=== PATIENT | female | born 1970 | race Caucasian/White ===

== ENCOUNTER 2018-06-14 17:53 | Emergency (ER) | payer SELFPAY ==
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
--- NOTE | 2018-06-14 18:36 | CR ---
INDICATION: injury TECHNIQUE: Left shoulder 2 views. COMPARISON: None. FINDINGS: Bones: Alignment is normal. No fractures or bone lesions. Joint spaces: Unremarkable. Soft tissues: Unremarkable. IMPRESSION: Unremarkable left shoulder. Dictated by: Ar Moore MD @ 06/14/2018 18:35:44 (Electronically Signed)
--- NOTE | 2018-06-14 18:38 | CR ---
INDICATION: Crush injury TECHNIQUE: Three views left elbow COMPARISON: None FINDINGS: Bones: Alignment is normal. No fractures. Scratch sense of bone involving the anterior distal humerus. Dorsal olecranon spur. Joint spaces: Unremarkable. Soft tissues: Unremarkable. IMPRESSION: Negative. No evidence of acute trauma. Dictated by Ar Moore MD @ 06/14/2018 6:37:41 PM Dictated by: Ar Moore MD @ 06/14/2018 18:37:48 (Electronically Signed)
== END 2018-06-14 19:05 | disposition home or self-care (01) ==
LOC: MW.ED 17:53
DX: S49.92XA Unspecified injury of left shoulder and upper arm, initial encounter (principal); S59.902A Unspecified injury of left elbow, initial encounter; W00.0XXA Fall on same level due to ice and snow, initial encounter
CPT/HCPCS: 73030-26-LT; 73030-LT; 73080-26-LT; 73080-LT; 99283; 99283-25